=== PATIENT | female | born 1980 | race Two or more races ===

== ENCOUNTER 2023-08-29 06:34 | Day surgery (SDC) | payer OTHER ==
[2023-08-28 13:47] LABS: HEMATOCRIT 40.6 % (36.0-45.00); HEMOGLOBIN 13.8 g/dL (12.0-15.00); MEAN CELL VOLUME 83.5 fL (80.00-100.00); MEAN CORPUSCULAR HEMOGLOBIN 28.4 pg (27.00-32.0); MEAN CORPUSCULAR HGB CONC 33.9 g/dl (32.0-36.0); PLATELET COUNT 233 K/uL (150-450); RED BLOOD COUNT 4.86 M/uL (4.00-6.00); RED CELL DISTRIBUTION WIDTH 14.5 % (11.5-14.5)
[2023-08-28 14:15] LABS: INR 0.98; PARTIAL THROMBOPLASTIN TIME 33.1 SECONDS (22.0-34.0); PROTHROMBIN TIME 10.3 SECONDS (9.0-11.5)
[2023-08-28 17:12] LABS: RH POSITIVE
[2023-08-29] MEDS ORDERED: CEFOXITIN SODIUM 2,000 MG VIAL IV ONE (09:06)
[2023-08-29] MEDS ORDERED: POVIDONE-IODINE 118 ML BOTT TOP ONE (09:47)
[2023-08-29] MEDS ORDERED: PROMETHAZINE HCL 50 MG/ML AMPUL IM ONE (12:00)
[2023-08-29] MEDS ORDERED: MORPHINE SULFATE 4 MG/ML VIAL IV PRN (12:00)
== END 2023-08-31 16:20 | disposition home or self-care (01) ==
LOC: CIR.AMB 06:34
PROVIDERS: ATTEND Obstetrics & Gynecology Maternal & Fetal Medicine
DX: O02.1 Missed abortion (principal)